=== PATIENT | male | born 1990 | race Caucasian/White ===

== ENCOUNTER 2016-07-24 18:24 | Emergency (ER) | payer MEDICAID ==
[2016-07-24 18:49] VITALS: BP 113/66
--- NOTE | 2016-07-24 19:23 | EDM.PDOC ---
ED HPI GENERAL MEDICAL PROBLEM - General Chief Complaint: General Stated Complaint: PT WOULD LIKE TO GET CHECK Time Seen by Provider: 07/24/16 19:05 Source of Information: Reports: Patient History Limitations: Reports: No limitations - History of Present Illness INITIAL COMMENTS - FREE TEXT/NARRATIVE: HISTORY AND PHYSICAL: History of present illness: [Pt comes to the ER requesting a serum drug screen. He had a urine drug screen completed today at a new job orientation, and turned up positive for cocaine and methamphetamine. Patient is adamant that he doesn't use these drugs. He would like to have a serum drug screen completed today. He paid to have an elective urine drug screen completed this afternoon which is sent out for analysis. 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 Now he is requesting a serum drug screen as well.] Review of systems: As per history of present illness and below otherwise all systems reviewed and negative. Past medical history: As per history of present illness and as reviewed below otherwise noncontributory. Surgical history: As per history of present illness and as reviewed below otherwise noncontributory. Social history: No reported history of drug or alcohol abuse. Family history: As per history of present illness and as reviewed below otherwise noncontributory. Physical exam: HEENT: Atraumatic, normocephalic. Neuro: Awake, alert, oriented. Motor and sensory unremarkable throughout. Exam nonfocal. Psych: Makes good eye contact, is pleasant and appropriate in conversation. Diagnostics: [Serum drug screen] Impression: [Serum drug screen] Plan: [Discussed with patient that this blood draw will take 7-10 days to receive results as his urine is sent to another facility. He also knows that these results will likely not be accepted by his employer as there is no change of custody paper work completed. He verbalized understanding of all this and wishes to proceed with a serum drug screen. All of his questions are answered and concerns are addressed.] Definitive disposition and diagnosis as appropriate pending reevaluation and review of above. - Related Data Allergies Allergy/AdvReac Type Severity Reaction Status Date / Time No Known Allergies Allergy Verified 07/24/16 18:52 Home Meds: Home Meds . [No Known Home Meds] 07/24/16 [History] Past Medical History - Past Health History Medical/Surgical History: Denies Medical/Surgical History Cardiovascular History: Reports: None Respiratory History: Reports: None, Other (see below) Other Respiratory History: chest tube, for collpased lung, right Gastrointestinal History: Reports: None Genitourinary History: Reports: None Musculoskeletal History: Reports: None Neurological History: Reports: None Psychiatric History: Reports: None Endocrine/Metabolic History: Reports: None Hematologic History: Reports: None Immunologic History: Reports: None Oncologic (Cancer) History: Reports: None Dermatologic History: Reports: None - Infectious Disease History Infectious Disease History: Reports: None - Past Surgical History Head Surgeries/Procedures: Reports: None HEENT Surgical History: Reports: Tonsillectomy Respiratory Surgical History: Reports: None Male Surgical History: Reports: Vasectomy Social & Family History - Family History Family Medical History: Noncontributory - Tobacco Use Smoking Status *Q: Never Smoker - Caffeine Use Caffeine Use: Reports: None - Recreational Drug Use Recreational Drug Use: No - Living Situation & Occupation Living situation: Reports: single Occupation: unemployed ED ROS GENERAL - Review of Systems Review Of Systems: ROS reveals no pertinent complaints other than HPI. ED EXAM, GENERAL - Physical Exam Exam: See Below Course - Vital Signs Last Recorded V/S: Last Vital Signs Temp 98.3 F 07/24/16 18:48 Pulse 79 07/24/16 18:48 Resp 16 07/24/16 18:48 BP 113/66 07/24/16 18:48 Pulse Ox 97 07/24/16 18:48 - Orders/Labs/Meds Orders: Active Orders 24 hr Category Date Time Status DRUG SCREEN, SERUM REFLEX [REF] Stat Lab 07/24/16 19:30 Received Departure - Departure Time of Disposition: 19:25 Disposition: Home, Self-Care 01 Condition: good Clinical Impression: Encounter for drug screening Instructions: Medical Screening Exam Referrals: PCP,None [Primary Care Provider] - Forms: ED Department Discharge Additional Instructions: The following information is given to patients seen in the emergency department who are being discharged to home. This information is to outline your options for follow-up care. We provide all patients seen in our emergency department with a follow-up referral. The need for follow-up, as well as the timing and circumstances, are variable depending upon the specifics of your emergency department visit. If you don't have a primary care physician on staff, we will provide you with a referral. We always advise you to contact your personal physician following an emergency department visit to inform them of the circumstance of the visit and for follow-up with them and/or the need for any referrals to a consulting specialist. The emergency department will also refer you to a specialist when appropriate. This referral assures that you have the opportunity for follow-up care with a specialist. All of these measure are taken in an effort to provide you with optimal care, which includes your follow-up. Under all circumstances we always encourage you to contact your private physician who remains a resource for coordinating your care. When calling for follow-up care, please make the office aware that this follow-up is from your recent emergency room visit. If for any reason you are refused follow-up, please contact the [facility] emergency department at and asked to speak to the emergency department charge nurse. [facility] [address] [place] [id number] You can expect your lab results in 7-10 days. Followup with local primary care provider as needed To ER as needed as discussed - My Orders Last 24 Hours: My Active Orders 07/24/16 19:30 DRUG SCREEN, SERUM REFLEX [REF] Stat - Assessment/Plan Last 24 Hours: My Active Orders 07/24/16 19:30 DRUG SCREEN, SERUM REFLEX [REF] Stat
== END 2016-07-24 19:40 | disposition home or self-care (01) ==
LOC: MW.ED 18:24
DX: Z02.89 Encounter for other administrative examinations (principal); Z98.890 Other specified postprocedural states; Z90.89 Acquired absence of other organs
CPT/HCPCS: 36415; 80307; 99281; 99282

== ENCOUNTER → 2016-12-11 | Day surgery (SDC) | payer MEDICAID ==
[~2016-12-11] MED LIST: Betamethasone Acetate/Betamethasone Sod Phosphate 30 MG/5 ML MDV ONE; Iopamidol 408 MG/ML 50 ML SDV ONE; Lidocaine 2% 5 ML SDV ONE; Ropivacaine 0.5% 5 MG/ML 30 ML SDV ONE
--- NOTE | 2016-12-11 19:42 | OR ---
SURGEON: Cecille Hartmann D.O. DATE OF PROCEDURE: 12/11/2016 OR STAFF PRESENT: 1. Priscilla Trevino RN. 2. Joelle Pedersen RN. [employer]: Hilda Diallo. WOUND CLASSIFICATION: I. PREOPERATIVE DIAGNOSES: 1. Bilateral L5 pars defects. 2. Lumbar spondylolisthesis. 3. Chronic low back pain. POSTOPERATIVE DIAGNOSES: 1. Bilateral L5 pars defects. 2. Lumbar spondylolisthesis. 3. Chronic low back pain. PROCEDURE PERFORMED: 1. Bilateral L5 diagnostic and therapeutic pars defect injections. 2. Fluoroscopic guidance for needle placement. 3. Local with oral Valium for sedation. SCREENING QUESTIONS: The patient answered "No" to all the following questions: 1. Are you allergic to iodine, Betadine or latex? 2. Do you have a bleeding disorder? 3. Are you on anti-inflammatories or blood thinners? 4. Do you have any current local or systemic infections? MEDICAL NECESSITY: This is a patient with chronic low back pain who comes in for the above diagnostic procedure. This procedure is being performed in accordance with national guidelines written by the International [employer]; please see medical necessity note in chart. DESCRIPTION OF PROCEDURE: The patient had the procedure thoroughly explained including risks, benefits and alternatives. Consent was signed in my clinic indicating understanding and willingness to proceed. The patient presented to [facility] and was escorted to the dressing room to disrobe and change into a hospital gown. Preoperative history and screening were performed by my nurse. Vital signs were taken and stable. The patient reported that Valium 10 milligrams was taken prior to the procedure. The patient was brought back to the procedure room and placed in the prone position on the procedure room table. A pillow was placed under the abdomen in order to flatten the lumbar lordosis. The back was prepped with ChloraPrep and sterilely draped. All personnel in the procedure room were dressed in appropriate attire including surgical scrubs, head and shoe covers. This was to ensure sterility while in the treatment room. During the time fluoroscopy was in use all personnel in the operating room wore lead delvalle with thyroid collars. Sterile technique was used during the procedure. The fluoroscope was positioned to provide a right oblique view for the L5- S1 pars injection. This was begun by anesthetizing the skin and soft tissues over the right pars defect. Then using fluoroscopic guidance, a sterile 22-gauge 3.5 inch spinal needle was positioned at the right . Precise needle placement was confirmed by fluoroscopy in AP and oblique views, and 0.2 cubic centimeters of IsoVue-200 contrast dye was injected through microbore tubing under live fluoroscopy and showed no intravascular flow pattern and adequate flow over the target. After negative aspiration, 0.5 cubic centimeters of 0.5% Ropivacaine was injected. No complications were noted. Then the fluoroscope was positioned for the left L5 S1 pars injection. This was begun by anesthetizing the skin and soft tissues. Then with fluoroscopic guidance a sterile 22-gauge 3.5 inch spinal needle was positioned at the left pars defect. Precise needle placement was confirmed with 0.2 cubic centimeters of IsoVue-200 contrast dye injected through microbore tubing under live fluoroscopy showing no intravascular flow pattern and adequate flow over the target . THen 0.5 cubic centimeters of 0.5% Ropivacaine was injected after negative aspiration without complications. The procedure was well tolerated and vital signs were stable during and after the procedure. The staff escorted the patient to the recovery area. The patient was given both oral and written discharge and followup instructions. The patient will follow up with a pain diary which will be evaluated over this evening doing things that would normally cause pain. We will evaluate the efficacy of the diagnostic lumbar medial branch blocks as the patient will follow up in the clinic the next day. The patient was given both oral and written discharge and followup instructions. The patient voiced understanding including understanding of those signs and symptoms that would require emergency care and knows how to contact the office if there are any questions or concerns in the meantime. PREOPERATIVE PAIN: 5/10 to 8/10. POSTOPERATIVE PAIN: 0/10. FOLLOWUP: Follow up in the Pain Clinic in 1 month. HOGLCHR / MODL /[id number] ALEXANDRA
== END ==
LOC: MW.SDS 13:02
PROVIDERS: ATTEND Anesthesiology
DX: G89.4 Chronic pain syndrome (principal); M43.17 Spondylolisthesis, lumbosacral region; M47.816 Spondylosis without myelopathy or radiculopathy, lumbar region; M43.16 Spondylolisthesis, lumbar region; Z98.890 Other specified postprocedural states; Z79.899 Other long term (current) drug therapy
CPT/HCPCS: 64493; J0702; Q9966; J2795

== ENCOUNTER 2018-01-30 11:26 | Day surgery (SDC) | payer BC, MEDICAID ==
[2018-01-30] MEDS ORDERED: Ropivacaine 0.5% 5 MG/ML 30 ML SDV ONE (11:28)
[2018-01-30] MEDS ORDERED: Lidocaine 2% 5 ML SDV ONE (11:28)
[2018-01-30] MEDS ORDERED: Iopamidol 408 MG/ML 50 ML SDV ONE (11:29)
[2018-01-30] MEDS ORDERED: Betamethasone Acetate/Betamethasone Sod Phosphate 30 MG/5 ML MDV ONE (11:29)
--- NOTE | 2018-01-31 00:25 | OR ---
SURGEON: Cecille Hartmann D.O. DATE OF PROCEDURE: 01/30/2018 PREOPERATIVE DIAGNOSES: 1. Chronic low back pain. 2. Lumbar degenerative disk disease, L4-L5 and L5-S1. 3. Lumbar spondylosis. 4. Lumbar spondylolisthesis. 5. L5-S1 pars defects. PROCEDURES PERFORMED: 1. Right L5-S1 pars defect injection. 2. Left L5-S1 pars defect injection. 3. Fluoroscopic guidance for needle placement. 4. Local with oral Valium for sedation. SCREENING QUESTIONS: The patient answered "No" to all the following questions: 1. Are you allergic to iodine, Betadine or latex? 2. Do you have a bleeding disorder? 3. Are you on anti-inflammatories or blood thinners? 4. Do you have any current local or systemic infections? MEDICAL NECESSITY: This is a patient with chronic low back pain who comes in for the above diagnostic procedure. This procedure is being performed in accordance with national guidelines written by the International Sp[employer]; please see medical necessity note in chart. DESCRIPTION OF PROCEDURE: The patient had the procedure thoroughly explained including risks, benefits and alternatives. Consent was signed in my clinic indicating understanding and willingness to proceed. The patient presented to [facility] outpatient [facility] and was escorted to the dressing room to disrobe and change into a hospital gown. Preoperative history and screening were performed by my nurse. Vital signs were taken and stable. The patient reported that Valium 10 milligrams was taken prior to the procedure. The patient was brought back to the procedure room and placed in the prone position on the procedure room table. A pillow was placed under the abdomen in order to flatten the lumbar lordosis. The back was prepped with ChloraPrep and sterilely draped. All personnel in the procedure room were dressed in appropriate attire including surgical scrubs, head and shoe covers. This was to ensure sterility while in the treatment room. During the time fluoroscopy was in use all personnel in the operating room wore lead delvalle with thyroid collars. Sterile technique was used during the procedure. The fluoroscope was positioned to provide a right oblique view for the L5-S1 pars defect injection. This was begun by anesthetizing the skin and soft tissues over the right sacral sulcus. Then using fluoroscopic guidance, a sterile 22-gauge 3.5 inch spinal needle was positioned at the right sacral ala. Precise needle placement was confirmed by fluoroscopy in AP and oblique views, and 0.2 cubic centimeters of IsoVue-200 contrast dye was injected through microbore tubing under live fluoroscopy and showed no intravascular flow pattern and adequate flow over the target nerves. After negative aspiration, 0.5 cubic centimeters of 0.5% Ropivacaine was injected. No complications were noted. Then the fluoroscope was positioned for the left L5-S1 pars defect injection. This was begun by anesthetizing the skin and soft tissues. Then with fluoroscopic guidance a sterile 22-gauge 3.5 inch spinal needle was positioned at the left sacral ala. Precise needle placement was confirmed with 0.2 cubic centimeters of IsoVue-200 contrast dye injected through microbore tubing under live fluoroscopy showing no intravascular flow pattern and adequate flow over the target L5 nerve. Then 0.5 cubic centimeters of 0.5% Ropivacaine was injected after negative aspiration without complications. The procedure was well tolerated and vital signs were stable during and after the procedure. The staff escorted the patient to the recovery area. The patient was given both oral and written discharge and followup instructions. The patient will follow up with a pain diary which will be evaluated over this evening doing things that would normally cause pain. We will evaluate the efficacy of the diagnostic lumbar medial branch blocks as the patient will follow up in the clinic the next day. The patient was given both oral and written discharge and followup instructions. The patient voiced understanding including understanding of those signs and symptoms that would require emergency care and knows how to contact the office if there are any questions or concerns in the meantime. PREOPERATIVE PAIN: 6/10. POSTOPERATIVE PAIN: 05/29. FOLLOWUP: Follow up in the Pain Clinic in 3 weeks. MIKEY / MEDARDO /[id number]
== END 2018-01-30 14:43 ==
LOC: MW.SDS 11:26
PROVIDERS: ATTEND Anesthesiology
DX: M43.17 Spondylolisthesis, lumbosacral region (principal); M47.816 Spondylosis without myelopathy or radiculopathy, lumbar region; M51.37 Other intervertebral disc degeneration, lumbosacral region; G89.29 Other chronic pain; M54.5 Low back pain; M79.1 Myalgia; Z79.899 Other long term (current) drug therapy
CPT/HCPCS: 64493; J0702; J2795; Q9966

== ENCOUNTER 2018-01-30 19:14 | Emergency (ER) | payer BC ==
[2018-01-30 19:28] VITALS: BP 103/56
[2018-01-30] MEDS ORDERED: Lidocaine 2% Viscous Solution 15 ML Cup PO ONE (19:34)
[2018-01-30] MEDS ORDERED: Benzocaine 20% Topical Spray UD MUCMEM ONE (19:34)
--- NOTE | 2018-01-30 19:39 | EDM.PDOC ---
ED HPI GENERAL MEDICAL PROBLEM - General Chief Complaint: General Stated Complaint: TOOTHACHE Time Seen by Provider: 01/30/18 19:34 Source of Information: Reports: Patient History Limitations: Reports: No Limitations - History of Present Illness INITIAL COMMENTS - FREE TEXT/NARRATIVE: HISTORY AND PHYSICAL: []27-year-old male presenting for tooth pain #15 History of Present Illness: []he was seen by the dentist who drilled on the tooth removed the nerve now is having pain at this site Review of Systems: As per history of present illness and below otherwise all systems reviewed and negative. Past medical history: As per history of present illness and as reviewed below otherwise noncontributory. Surgical history: As per history of present illness and as reviewed below otherwise noncontributory. Social history: No reported history of drug or alcohol abuse. Family history: As per history of present illness and as reviewed below otherwise noncontributory. Physical exam: Alert and oriented male answering questions properly in full sentences without any shortness of breath. HEENT: Atraumatic, normocehpalic, pupils reactive, negative for conjunctival pallor or scleral icterus, mucous membranes moist, throat clear, neck supple, nontender, trachea midline. Small amount of edema noted surrounding tooth #15 and 14 Lungs: Clear to auscultation, breath sounds equal bilaterally, chest non tender. Heart: S1S2, regular, negative for clicks, rubs, or JVD. Abdomen: Soft, nondistended, nontender. Negative for masses or hepatossplenmegaly. Negative for costovertebral tenderness. Pelvis: Stable nontender. Genitourinary: Deferred. Rectal: Deferred Extremities: Atraumatic, negative for cords or calf pain. Neurovascular unremarkable. Neuro: Awake, alert, oriented. Cranial nerves II through XII unremarkable. Cerebellum unremarkable. Motor and sensory unremarkable throughout. Exam nonfocal. Diagnostics: [] Therapeutics: []Dental balls Impression: []Dentalgia Plan: []Discharge Antibiotic therapy Augmentin Follow up with your dentist for resolution of this problem Definitive disposition and diagnosis as appropriate pending reevaluation and review of above. Onset: Gradual Duration: Day(s):, Getting Worse Location: Reports: Face Quality: Reports: Stabbing Severity: Moderate Improves with: Reports: None Worsens with: Reports: None tooth Pain Score (Numeric/FACES): 3 - Related Data Allergies Allergy/AdvReac Type Severity Reaction Status Date / Time No Known Allergies Allergy Verified 01/30/18 19:24 Home Meds: Home Meds Amoxicillin/Potassium Clav [Augmentin 875-125 Tablet] 1 each PO BID #14 tablet 01/30/18 [Rx] Past Medical History - Past Health History Medical/Surgical History: Denies Medical/Surgical History Cardiovascular History: Reports: None Respiratory History: Reports: None, Other (See Below) Other Respiratory History: chest tube, for collpased lung, right Gastrointestinal History: Reports: None Genitourinary History: Reports: None Musculoskeletal History: Reports: None Neurological History: Reports: None Psychiatric History: Reports: None Endocrine/Metabolic History: Reports: None Hematologic History: Reports: None Immunologic History: Reports: None Oncologic (Cancer) History: Reports: None Dermatologic History: Reports: None - Infectious Disease History Infectious Disease History: Reports: Chicken Pox - Past Surgical History Head Surgeries/Procedures: Reports: None HEENT Surgical History: Reports: Tonsillectomy Male Surgical History: Reports: Vasectomy Social & Family History - Family History Family Medical History: Noncontributory - Tobacco Use Smoking Status *Q: Never Smoker Years of Tobacco use: 10 - Caffeine Use Caffeine Use: Reports: None - Recreational Drug Use Recreational Drug Use: No - Living Situation & Occupation Living situation: Reports: Single Occupation: Unemployed ED ROS GENERAL - Review of Systems Review Of Systems: ROS reveals no pertinent complaints other than HPI. ED EXAM, GENERAL - Physical Exam Exam: See Below (see dictation) Course - Vital Signs Last Recorded V/S: Last Vital Signs Temp 36.3 C 01/30/18 19:25 Pulse 72 01/30/18 19:25 Resp 18 01/30/18 19:25 BP 103/56 L 01/30/18 19:25 Pulse Ox 96 01/30/18 19:25 - Orders/Labs/Meds Orders: Active Orders 24 hr Category Date Time Status Benzocaine [Hurricaine One 20%] Med 01/30/18 19:34 Once 2 each MUCMEM ONETIME ONE Lidocaine 2% [Xylocaine 2% Viscous] Med 01/30/18 19:34 Once 15 ml PO ONETIME ONE Departure - Departure Time of Disposition: 19:36 Disposition: Home, Self-Care 01 Condition: Good Clinical Impression: Pain, dental - Discharge Information Prescriptions: Amoxicillin/Potassium Clav [Augmentin 875-125 Tablet] 1 each PO BID #14 tablet Additional Instructions: The following information is given to patients seen in the emergency department who are being discharged to home. This information is to outline your options for follow-up care. We provide all patients seen in our emergency department with a follow-up referral. The need for follow-up, as well as the timing and circumstances, are variable depending upon the specifics of your emergency department visit. If you don't have a primary care physician on staff, we will provide you with a referral. We always advise you to contact your personal physician following an emergency department visit to inform them of the circumstance of the visit and for follow-up with them and/or the need for any referrals to a consulting specialist. The emergency department will also refer you to a specialist when appropriate. This referral assures that you have the opportunity for followup care with a specialist. All of these measure are taken in an effort to provide you with optimal care, which includes your followup. Under all circumstances we always encourage you to contact your private physician who remains a resource for coordinating your care. When calling for followup care, please make the office aware that this follow-up is from your recent emergency room visit. If for any reason you are refused follow-up, please contact the [facility] emergency department at and asked to speak to the emergency department charge nurse. Discharge Antibiotic therapy Augmentin was sent electronically to your pharmacy Follow up with your dentist for resolution of this problem - My Orders Last 24 Hours: My Active Orders 01/30/18 19:34 Benzocaine [Hurricaine One 20%] 2 each MUCMEM ONETIME ONE Lidocaine 2% [Xylocaine 2% Viscous] 15 ml PO ONETIME ONE - Assessment/Plan Last 24 Hours: My Active Orders 01/30/18 19:34 Benzocaine [Hurricaine One 20%] 2 each MUCMEM ONETIME ONE Lidocaine 2% [Xylocaine 2% Viscous] 15 ml PO ONETIME ONE
== END 2018-01-30 19:57 | disposition home or self-care (01) ==
LOC: MW.ED 19:14
DX: K08.89 Other specified disorders of teeth and supporting structures (principal)
CPT/HCPCS: 99282; A9270

== ENCOUNTER 2018-07-21 00:21 | Emergency (ER) | payer BC ==
[2018-07-21] MEDS ORDERED: traMADol 50 MG Tab PO ONE (00:56)
[2018-07-21] MEDS ORDERED: Ketorolac 60 MG/2 ML SDV IM ONE (00:56)
--- NOTE | 2018-07-21 01:00 | EDM.PDOC ---
ED HPI GENERAL MEDICAL PROBLEM - General Chief Complaint: Back Pain or Injury Stated Complaint: BACK PAIN Time Seen by Provider: 07/21/18 00:58 Source of Information: Reports: Patient - History of Present Illness INITIAL COMMENTS - FREE TEXT/NARRATIVE: HISTORY AND PHYSICAL: History of present illness: []Patient presents with chronic pain/muscle spasm receives trigger point injections with pain management He has been a month since his last injections apparently did not get steroid with his previous injection, he complains of pain tonight is in no distress rates pain 10 out of 10 earlier this evening however he moves freely with no distress whatsoever on and off the exam table On exam musculoskeletal there is no vertebral point tenderness he denies injury he has clear paraspinous muscle s as well as extending around infraspinatus on the left and likely needs to repeat trigger point injection Otherwise no bowel or urine symptoms no footdrop or saddle anesthesia Review of systems: As per history of present illness and below otherwise all systems reviewed and negative. Past medical history: As per history of present illness and as reviewed below otherwise noncontributory. Surgical history: As per history of present illness and as reviewed below otherwise noncontributory. Social history: No reported history of drug or alcohol abuse. Family history: As per history of present illness and as reviewed below otherwise noncontributory. Physical exam: HEENT: Atraumatic, normocephalic, pupils reactive, negative for conjunctival pallor or scleral icterus, mucous membranes moist, throat clear, neck supple, nontender, trachea midline. Lungs: Clear to auscultation, breath sounds equal bilaterally, chest nontender. Heart: S1S2, regular, negative for clicks, rubs, or JVD. Abdomen: Soft, nondistended, nontender. Negative for masses or hepatosplenomegaly. Negative for costovertebral tenderness. Pelvis: Stable nontender. Genitourinary: Deferred. Rectal: Deferred. Extremities: Atraumatic, negative for cords or calf pain. Neurovascular unremarkable. Neuro: Awake, alert, oriented. Cranial nerves II through XII unremarkable. Cerebellum unremarkable. Motor and sensory unremarkable throughout. Exam nonfocal. Diagnostics: [ nickel ] Therapeutics: [ Toradol 60 IM Tramadol 50 mg by mouth now and #30 Follow-up with pain management ] Impression: [ muscle spasm Chronic history of baseline] Definitive disposition and diagnosis as appropriate pending reevaluation and review of above. Middle Back Pain Score (Numeric/FACES): 7 - Related Data Allergies Allergy/AdvReac Type Severity Reaction Status Date / Time No Known Allergies Allergy Verified 07/21/18 00:36 Home Meds: Home Meds . [No Known Home Meds] 07/21/18 [History] Past Medical History - Past Health History Medical/Surgical History: Denies Medical/Surgical History Cardiovascular History: Reports: None Respiratory History: Reports: None, Other (See Below) Other Respiratory History: chest tube, for collpased lung, right Gastrointestinal History: Reports: None Genitourinary History: Reports: None Musculoskeletal History: Reports: None Neurological History: Reports: None Psychiatric History: Reports: None Endocrine/Metabolic History: Reports: None Hematologic History: Reports: None Immunologic History: Reports: None Oncologic (Cancer) History: Reports: None Dermatologic History: Reports: None - Infectious Disease History Infectious Disease History: Reports: None - Past Surgical History Head Surgeries/Procedures: Reports: None HEENT Surgical History: Reports: Tonsillectomy Male Surgical History: Reports: Vasectomy Social & Family History - Family History Family Medical History: Noncontributory - Tobacco Use Smoking Status *Q: Never Smoker Second Hand Smoke Exposure: No - Caffeine Use Caffeine Use: Reports: Coffee - Recreational Drug Use Recreational Drug Use: No - Living Situation & Occupation Living situation: Reports: Single Occupation: Unemployed ED ROS GENERAL - Review of Systems Review Of Systems: See Below ED EXAM, GENERAL - Physical Exam Exam: See Below Course - Vital Signs Last Recorded V/S: Last Vital Signs Temp 98 F 07/21/18 00:44 Pulse 61 07/21/18 00:44 Resp 16 07/21/18 00:44 BP 118/66 07/21/18 00:44 Pulse Ox 97 07/21/18 00:44 - Orders/Labs/Meds Meds: Medications Discontinued Medications Generic Name Dose Route Start Last Admin Trade Name Freq PRN Reason Stop Dose Admin Ketorolac Tromethamine 60 mg 07/21/18 00:56 Toradol IM 07/21/18 00:57 ONETIME ONE Tramadol HCl 50 mg 07/21/18 00:56 Ultram PO 07/21/18 00:57 ONETIME ONE Departure - Departure Time of Disposition: 01:00 Disposition: Home, Self-Care 01 Condition: Good Clinical Impression: Muscle spasm - Discharge Information Referrals: PCP,None [Primary Care Provider] - Additional Instructions: The following information is given to patients seen in the emergency department who are being discharged to home. This information is to outline your options for follow-up care. We provide all patients seen in our emergency department with a follow-up referral. The need for follow-up, as well as the timing and circumstances, are variable depending upon the specifics of your emergency department visit. If you don't have a primary care physician on staff, we will provide you with a referral. We always advise you to contact your personal physician following an emergency department visit to inform them of the circumstance of the visit and for follow-up with them and/or the need for any referrals to a consulting specialist. The emergency department will also refer you to a specialist when appropriate. This referral assures that you have the opportunity for follow-up care with a specialist. All of these measure are taken in an effort to provide you with optimal care, which includes your follow-up. Under all circumstances we always encourage you to contact your private physician who remains a resource for coordinating your care. When calling for follow-up care, please make the office aware that this follow-up is from your recent emergency room visit. If for any reason you are refused follow-up, please contact the [facility] emergency department at and asked to speak to the emergency department charge nurse.
[2018-07-21 01:51] VITALS: BP 105/56
== END 2018-07-21 01:51 | disposition home or self-care (01) ==
LOC: MW.ED 00:21
DX: M62.830 Muscle spasm of back (principal); M54.6 Pain in thoracic spine; G89.29 Other chronic pain; Z98.890 Other specified postprocedural states
CPT/HCPCS: 96372; 99283; A9270; J1885; 99282

== ENCOUNTER 2019-07-31 04:14 | Emergency (ER) | payer SELFPAY ==
[2019-07-31] MEDS ORDERED: Acetaminophen 325 MG Tab PO ONE (04:33)
[2019-07-31] MEDS ORDERED: Ketorolac 30 MG/ML SDV IM ONE (04:33)
[2019-07-31] MEDS ORDERED: Acetaminophen 500 MG Tab PO ONE (04:35)
--- NOTE | 2019-07-31 04:53 | EDM.PDOC ---
ED HPI GENERAL MEDICAL PROBLEM - General Chief Complaint: Fever Stated Complaint: FEVER Time Seen by Provider: 07/31/19 04:16 Source of Information: Reports: Patient History Limitations: Reports: No Limitations - History of Present Illness INITIAL COMMENTS - FREE TEXT/NARRATIVE: 28-year-old male presents with body aches and fever. Patient reports a 2-day history of body aches and fever. Has been taking ibuprofen occasionally to help break the fever. He had success earlier noon yesterday but his fever has returned and he feels achy. Patient denies any shortness of breath, difficulty urinating, dysuria, changes in bowel habits, chest pain, confusion, weakness, headache, sore throat. He does say that his chest is sore when he coughs. No aching joints or bug bites. Patient has not been out of the [facility] and a recently although he did have friends in from [place] about 2 and half weeks ago. - Related Data Allergies Allergy/AdvReac Type Severity Reaction Status Date / Time No Known Allergies Allergy Verified 07/31/19 04:28 Home Meds: Home Meds . [No Known Home Meds] 07/21/18 [History] Past Medical History - Past Health History Medical/Surgical History: Denies Medical/Surgical History HEENT History: Reports: None Cardiovascular History: Reports: None Respiratory History: Reports: None, Other (See Below) Other Respiratory History: chest tube, for collpased lung, right Gastrointestinal History: Reports: None Genitourinary History: Reports: None Musculoskeletal History: Reports: None Neurological History: Reports: None Psychiatric History: Reports: None Endocrine/Metabolic History: Reports: None Hematologic History: Reports: None Immunologic History: Reports: None Oncologic (Cancer) History: Reports: None Dermatologic History: Reports: None - Infectious Disease History Infectious Disease History: Reports: Chicken Pox - Past Surgical History Head Surgeries/Procedures: Reports: None HEENT Surgical History: Reports: Tonsillectomy Respiratory Surgical History: Reports: None Male Surgical History: Reports: Vasectomy Social & Family History - Family History Family Medical History: Noncontributory - Tobacco Use Smoking Status *Q: Never Smoker Second Hand Smoke Exposure: No - Caffeine Use Caffeine Use: Reports: None - Recreational Drug Use Recreational Drug Use: No - Living Situation & Occupation Living situation: Reports: Single Occupation: Unemployed ED ROS GENERAL - Review of Systems Review Of Systems: Comprehensive ROS is negative, except as noted in HPI. ED EXAM, GENERAL - Physical Exam Exam: See Below Free Text/Narrative:: General: No acute distress. Comfortable. Heent: Examination revealed no pallor, no icterus, no lymphadenopathy. The patient has normal posterior pharynx, moist mucous membranes. Neck: Supple. No JVD. No rigidity. Heart: Normal rate. Reg rhythm. No murmurs appreciated. Lungs: Bilaterally clear to auscultation. No focal findings. Abdomen: Nontender, non-distended, soft, no CVA tenderness. Neuro: Pt is moving all four extremities. EOMI. PERRL. Normal speech. Skin: Exposed areas appeared normally perfused, warm, normal color with no meaningful rashes or lesions. Extremities: Peripheral examination revealed no pedal edema. Peripheral pulses were 2+. Course - Vital Signs Text/Narrative:: Patient's fevers moderating. He said his aches are much better. He drank around 20 ounces of water here easily. He was to be discharged home to recuperate. Patient will be informed to stay at home and be very careful not to spread his illness or other folks. Return precautions. Last Recorded V/S: Last Vital Signs Temp 101.1 F H 07/31/19 05:17 Pulse 82 07/31/19 05:17 Resp 18 07/31/19 05:17 BP 110/55 L 07/31/19 05:17 Pulse Ox 97 07/31/19 05:17 - Orders/Labs/Meds Meds: Medications Discontinued Medications Generic Name Dose Route Start Last Admin Trade Name Jonathon PRN Reason Stop Dose Admin Acetaminophen 1,000 mg 07/31/19 04:33 07/31/19 04:41 Tylenol PO 07/31/19 04:34 Not Given NOW ONE Acetaminophen 1,000 mg 07/31/19 04:35 07/31/19 04:41 Tylenol Extra Strength PO 07/31/19 04:36 1,000 mg ONETIME ONE Administration Ketorolac Tromethamine 30 mg 07/31/19 04:33 07/31/19 04:39 Toradol IM 07/31/19 04:34 30 mg ONETIME ONE Administration Departure - Departure Time of Disposition: 05:37 [facility]position: [facility] Condition: Good Clinical Impression: Flu-like symptoms - Discharge Information Referrals: PCP,None [Primary Care Provider] - Forms: ED Department Discharge Additional Instructions: Take ibuprofen, which is the same thing as Advil and Motrin, 2 or 3 tablets every 6 hours to help control aches and fevers. You can also take acetaminophen which is Tylenol every 4 hours to help with fever. Return to emergency immediately with any shortness of breath or new complaints or concerns. You should stay at home until your fever and symptoms subside completely. You do not want to spread this illness to other people in the community. General discharge. Sepsis Event Note - Evaluation Sepsis Screening Result: No Definite Risk - Focused Exam Vital Signs: Vital Signs Temp Pulse Resp BP Pulse Ox 07/31/19 05:17 101.1 F H 82 18 110/55 L 97 07/31/19 04:22 101.8 F H 79 18 118/69 95 Date Exam was Performed: 07/31/19 Time Exam was Performed: 05:36
[2019-07-31 05:18] VITALS: BP 110/55; PULSE 82
== END 2019-07-31 05:50 | disposition home or self-care (01) ==
LOC: MW.ED 04:14
DX: J11.1 Influenza due to unidentified influenza virus with other respiratory manifestations (principal)
CPT/HCPCS: 96372; 99283; A9270; J1885

== ENCOUNTER 2022-03-18 10:50 | Emergency (ER) | payer SELFPAY ==
[2022-03-18 11:52] VITALS: BP 128/65; PULSE 63
== END 2022-03-18 11:59 | disposition home or self-care (01) ==
LOC: MW.ED 10:50
DX: L03.113 Cellulitis of right upper limb (principal)
CPT/HCPCS: 99283

== ENCOUNTER 2022-04-12 12:59 | Emergency (ER) | payer SELFPAY ==
[2022-04-12] MEDS ORDERED: Ketorolac 60 MG/2 ML SDV IM ONE (13:21)
[2022-04-12 13:53] LABS: CORONAVIRUS COVID-19 NAA NEGATIVE (NEGATIVE); INFLUENZA A NAA POSITIVE (NEGATIVE); INFLUENZA B NAA NEGATIVE (NEGATIVE)
[2022-04-12] MEDS ORDERED: Oseltamivir 75 MG Cap PO ONE (14:14)
[2022-04-12 14:49] VITALS: BP 123/68; PULSE 84
== END 2022-04-12 14:41 | disposition home or self-care (01) ==
LOC: MW.ED 12:59
DX: J10.1 Influenza due to other identified influenza virus with other respiratory manifestations (principal); Z79.899 Other long term (current) drug therapy; Z86.16 Personal history of COVID-19; Z20.822 Contact with and (suspected) exposure to COVID-19
CPT/HCPCS: 0240U; 87651; 96372; 99283; A9270; J1885

== ENCOUNTER 2022-11-03 09:14 | Emergency (ER) | payer SELFPAY ==
[2022-11-03 09:40] VITALS: BP 134/91; PULSE 75
[2022-11-03] MEDS ORDERED: Sodium Chloride 0.9% 2.5 ML Syringe FLUSH PRN (09:44)
[2022-11-03] MEDS ORDERED: Sodium Chloride 0.9% 10 ML Syringe FLUSH PRN (09:44)
[2022-11-03 10:16] LABS: BASOPHILS PERCENT AUTO 0.1 % (0.0-1.5); EOSINOPHILS PERCENT AUTO 0.5 % (0.0-7.0); HEMATOCRIT 39.4 % (38.0-50.0); HEMOGLOBIN 13.7 g/dL (13.0-17.0); LYMPHOCYTES ABSOLUTE AUTO 1.7 K/uL (0.6-2.4); LYMPHOCYTES PERCENT AUTO 23.5 % (16.0-40.0); MEAN CORPUSCULAR HEMOGLOBIN 30.6 pg (27.0-32.0); MEAN CORPUSCULAR HGB CONC 34.8 g/dL (31.0-37.0); MEAN CORPUSCULAR VOLUME 88.1 fL (80.0-98.0); MONOCYTES ABSOLUTE AUTO 0.6 K/uL (0.0-0.8); MONOCYTES PERCENT AUTO 8.5 % (0.0-15.0); NEUTROPHILS PERCENT AUTO 67.4 % (48.0-80.0); NRBC ABSOLUTE 0 K/uL; PLATELET COUNT,PLT 233 K/uL (150-400); RED BLOOD CELL COUNT 4.47 M/uL (4.50-5.90); WHITE BLOOD CELL COUNT,WBC 7.42 K/uL (4.0-11.0)
[2022-11-03 10:53] LABS: A/G RATIO 1.2 (0.9-1.6); ACETAMINOPHEN <2.0 ug/mL; ALANINE AMINOTRANSFERASE,ALT 44 IU/L (14-63); ALBUMIN 3.9 g/dL (3.4-5.0); ALKALINE PHOSPHATASE 49 U/L (46-116); ASPARTATE AMNIOTRANSFERASE,AST 21 IU/L (15-37); BILIRUBIN TOTAL 0.4 mg/dL (0.2-1.0); BLOOD UREA NITROGEN,BUN 18 mg/dL (7.0-18.0); CALCIUM 8.6 mg/dL (8.5-10.1); CHLORIDE,CL 104 mmol/L (98-107); EST CRCL DRUG DOSING (CG) 96.59 mL/min; GLUCOSE RANDOM 86 mg/dL (74-106); POTASSIUM,K 3.5 mmol/L (3.5-5.1); PROTEIN TOTAL,TP 7.2 g/dL (6.4-8.2); SODIUM,NA 141 mmol/L (136-148); TSH ULTRASENSITIVE 0.63 uIU/mL (0.36-3.74)
[2022-11-03 10:57] LABS: ESTIMATED GFR 103 mL/min (>60); ETHANOL BLOOD MEDICAL < 3.0 mg/dL; SALICYLATE < 0.2 mg/dL (0.0-20.0)
== END 2022-11-03 12:19 | disposition home or self-care (01) ==
LOC: MW.ED 09:14
DX: G47.00 Insomnia, unspecified (principal); F19.239 Other psychoactive substance dependence with withdrawal, unspecified
CPT/HCPCS: 36415; 80053; 80143; 80179; 80307; 84443; 85025; 93005; 99284

== ENCOUNTER 2022-11-10 11:31 | Emergency (ER) | payer SELFPAY ==
[2022-11-10 12:03] VITALS: BP 112/72; PULSE 65
== END 2022-11-10 13:13 | disposition home or self-care (01) ==
LOC: MW.ED 11:31
DX: Z76.0 Encounter for issue of repeat prescription (principal); F17.210 Nicotine dependence, cigarettes, uncomplicated; Z86.16 Personal history of COVID-19
CPT/HCPCS: 99281; 99282

== ENCOUNTER 2023-03-07 08:50 | Day surgery (SDC) | payer SELFPAY ==
[~2023-03-07 08:50] MED LIST changes: -Betamethasone Acetate/Betamethasone Sod Phosphate 30 MG/5 ML MDV ONE; -Iopamidol 408 MG/ML 50 ML SDV ONE; +Lactated Ringers 1,000 ML IV SCH; -Lidocaine 2% 5 ML SDV ONE; -Ropivacaine 0.5% 5 MG/ML 30 ML SDV ONE; +propofoL 50 ML ONE
[2023-03-07] MEDS ORDERED: Dexmedetomidine 200 MCG/2 ML SDV ONE (10:26)
[2023-03-07 11:45] VITALS: BP 100/68; PULSE 64
== END 2023-03-07 12:10 | disposition home or self-care (01) ==
LOC: MW.SDS 08:50
PROVIDERS: ATTEND Surgery
DX: K29.50 Unspecified chronic gastritis without bleeding (principal); K22.89 Other specified disease of esophagus; R13.10 Dysphagia, unspecified; F90.9 Attention-deficit hyperactivity disorder, unspecified type; G43.909 Migraine, unspecified, not intractable, without status migrainosus; F41.0 Panic disorder [episodic paroxysmal anxiety]; F43.10 Post-traumatic stress disorder, unspecified; Z79.899 Other long term (current) drug therapy
CPT/HCPCS: 43239; 45380; J2704; J7120; J3490